=== PATIENT | male | born 1950 | race Caucasian/White ===

== ENCOUNTER → 2017-03-18 | Outpatient (CLI) | payer BC ==
[~2017-03-18] MED LIST: LEVO88TA3 PO; MULT-513 PO; PRLSR20 PO
--- NOTE | 2017-03-18 16:07 | DIAGNOSTIC IMAGING REPORT ---
MRI OF THE LEFT FOREFOOT WITHOUT IV CONTRAST CLINICAL HISTORY: Pain in the left second interspace. COMPARISON STUDY: MRI of the left foot dated 05/07/2016. TECHNIQUE: MRI of the left forefoot is performed utilizing various T1 and T2-weighted sequences in the axial, sagittal, and coronal planes. IV contrast was not administered for this examination. FINDINGS: There is an arthroplasty present at the first metatarsophalangeal joint. No marrow signal abnormality is identified in the left forefoot to indicate fracture or osteonecrosis. A cutaneous marker has been placed along the dorsal aspect of the second toe at the level of the metatarsal head. There is a lobulated T1 hypointense structure seen between the second and third metatarsophalangeal joints. This is best seen on axial image #17 and coronal T1 image #13 and measures approximately 15 x 3 x 10 mm. The appearance is concerning for a small neuroma. The neuroma previously questioned between the third and fourth metatarsophalangeal joints on 05/07/2016 is no longer identified and may have been removed. The regional musculature is normal as imaged. The partially visualized flexor and extensor tendons are grossly normal. IMPRESSION: 1. There is a lobulated T1 hypointense structure between the second and third metatarsophalangeal joints, concerning for a small neuroma as clinically suspected. This is deep to the indicated site of pain. 2. The neuroma previously suggested between the third and fourth metatarsophalangeal joints is no longer identified. 3. An arthroplasty is noted at the first metatarsophalangeal joint. Electronically signed by: Dat Mora M.D. 03/18/2017 4:06 PM Dictated Date/Time: 03/18/2017 3:57 PM
== END | disposition home or self-care (01) ==
LOC: C.MRIBC 15:00
PROVIDERS: ATTEND Podiatrist Foot & Ankle Surgery
DX: M24.875 Other specific joint derangements left foot, not elsewhere classified (principal); M77.8 Other enthesopathies, not elsewhere classified

== ENCOUNTER → 2017-06-12 | Day surgery (SDC) | payer BC ==
--- NOTE | 2017-06-10 19:09 | HISTORY & PHYSICAL EXAMINATION ---
DATE OF ADMISSION: 06/12/2017 HISTORY OF PRESENT ILLNESS: A 67-year-old male presents for initial preoperative evaluation. Pain is located in the left foot. Severity of condition is graded as 7 on a 10-point scale, gradually worsening over time. Pain is described as aching, sore and tender. Onset of the condition is unknown. The patient denies any recent numbness, precipitating event or other history. Associated signs and symptoms include numbness and tingling. The patient indicates injection has not improved the ____, nonsteroidals have not helped, orthotics have not helped, physical therapy has not helped. Rest has slightly improved his condition. He has also had surgery and MRI. Due to the nature and severity of the discomfort, he is requesting surgical intervention at this time. The patient previously underwent an implant replacement by Dr. Brasher. He subsequently had problems with his foot following the surgery. He was then found to have a neuroma over the 3rd interspace which he underwent surgery for and now is having symptoms in the 2nd interspace. MRI prior to the neuroma surgery showed a neuroma in the 3rd interspace; however, due to symptoms, this was explored and no neuroma was found. The new MRI showed a new neuroma over the left 2nd interspace. He has had extensive care, offloading and conservative treatment to avoid an additional surgery; however, due to the nature and severity of discomfort, the large size of the neuroma present over the 2nd interspace, the patient would like to proceed with surgical excision, similar to what he had performed before. He also notes pain on the 1st and would like this corrected at the same time. PAST SURGICAL HISTORY: Multiple foot surgeries in 2013 and 2016. PAST MEDICAL HISTORY: Vertigo, thyroid condition, hypercholesterolemia, heart valve problem, heart problems, back problems. MEDICATIONS: Omeprazole, levofloxacin. ALLERGIES: No known medical allergies. FAMILY HISTORY: Prostate cancer associated with father, heart problems. SOCIAL HISTORY: The patient admits to alcohol use, drinking described as mild. REVIEW OF SYSTEMS: Unremarkable except chief complaint. PHYSICAL EXAMINATION: VITAL SIGNS: 124/78, temperature is tympanic, temperature is 96.9. Height 6'1", weight 156, BMI 21. HEAD AND FACE: Head is normocephalic and atraumatic without any gross head, face, or neck masses. EYES: Conjunctival and pupillary reaction to light and accommodation are normal. EARS, NOSE, MOUTH, AND THROAT: Unremarkable. CARDIOVASCULAR: Normal S1, S2 without murmur, gallops, rubs, or clicks noted. Cardiovascular exam is normal. RESPIRATORY: Chest is symmetric. No scars are visible. No port or pacemaker. LUNGS: Clear to auscultation bilaterally and equal. GASTROINTESTINAL: Abdominal organs, bladder, and kidneys show no abnormalities, masses, tenderness, or rigidity. LYMPHATIC: No popliteal, inguinal, or supraclavicular lymphadenopathy noted. LOWER EXTREMITY VASCULAR: DP palpable. PT palpable. DERMATOLOGIC: No skin rash, subcutaneous nodules, lesions, or ulcers observed. NEUROLOGICAL: Touch, pin, vibratory pain, proprioception sensations are normal. Pain on palpation left 2nd interspace and left 3rd interspace. MUSCULOSKELETAL: Muscle tone is normal. Muscle strength is 5/5 all groups tested. 1st metatarsophalangeal joint shows evidence of an enlarged dorsomedial eminence bilaterally. Range of motion is limited and range of motion continues to be limited on the left. Right 2nd digit shows retrograde buckling across the metatarsophalangeal joint. Prominence of the plantar right 2nd MTPJ is noted. PIPJ contracture noted 2 through 5 bilaterally. DATA: MRI of the left foot on 05/07/2016 and then an MRI report for 03/18/2017, metallic artifact showing in this area. No definitive underlying abnormality; however, it is best seen on axial images 42 and 55. There is an oval shaped T2 hyperintense soft tissue abnormality between the heads of the 2nd and 3rd digits that was not present on the previous MRI report. IMPRESSION: Hammertoes 2 through 5 bilaterally, hallux limitus left greater than right, Tailor's bunion left, status post left 1st metatarsophalangeal joint surgery by Dr. 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 Brasher in 2011. PLAN: I discussed mechanical and congenital etiology of patient's deformity. Conservative treatment consisting of: 1. Extra depth shoes, accommodative padding, steroid injection, nonsteroidals, palliative debridement, splints and orthotics. Due to little relief with conservative treatment, the patient is requesting surgical intervention. Surgical ____ to be performed: 1. PIPJ arthroplasty with possible arthrodesis and MTPJ release, left 2nd digit. 2. Capsulotomy with relocation of left 2nd MTPJ. 3. Exploration of ____ left 2nd interspace with possible mass neuroma, excision plantar approach for modified Osei with possible fibular sesamoid excision, left. 4. Hardware excision left 1st metatarsophalangeal joint. 5. Cheilectomy, left 1st MTPJ with chante-implant, possible total joint and plasty. This will be performed under general anesthesia as an outpatient at the hospital. The procedure, risks and complications were fully reviewed with the patient. Consent form, foot diagram and illustration reviewed in all their entirety. All of the patient's questions were answered. Complications were discussed in detail with the patient including pain, infection, swelling that may or may not be excessive, pins and needles feeling, numbness, metatarsalgia, excessive bleeding, delay or nonhealing of bone, delay or nonhealing of skin, enlarged scar, failure of the procedure, reoccurrence or worsening of condition which may or may not require further surgery, adverse reaction to anesthesia, allergic reaction to suture or other implant material, loss of toe, foot, or leg, flail toe, stiff toe, short toe, elevated toe, transfer lesion or callus, peripheral neurovascular complications such as phlebitis, damage to nerves or vascular structures, severe or chronic arch pain, chronic nerve pain or damage, and general medical complications. The patient will be required to be in a surgery shoe for a minimum of 3-6 weeks and not return to dress shoes for 6-12 weeks depending on the postop edema. The patient is aware this is an elective type procedure and I recommend a second opinion. The patient stated they understood. Consent form was signed with a copy of the foot diagram issued to the patient. Verbal and written postop instructions were given. The patient will return to the office for postop check or sooner if medically necessary. Instructed to keep the dressing clean, dry, and intact until seen at the office. At time of the preoperative appointment, prescriptions for Keflex and Percocet were dispensed.
[~2017-06-12] VITALS: Ht 185.4 cm; Wt 70.9 kg
[2017-06-12] VITALS (9 sets, daily range): BP systolic 123–149; BP diastolic 63–88; PULSE 59–72; TEMP 36.5–36.7; O2SAT 95–99; Ht 185.4 cm; Wt 70.9 kg
[~2017-06-12] MED LIST changes: +ATROPINE SULFATE 0.1 MG/ML 5ML SYR IV PRN; +BUPIVACAINE 0.5 % 5 MG/1 ML MPF 30ML VIAL ONE; +BUPIVACAINE 0.5 % 5 MG/1 ML PF 10ML VIAL ONE; +CEFAZOLIN 1000MG/55 ML D5W IV SCH; +CLONIDINE HCL 100 MCG/ML SYRINGE ONE; +DEXAMETHASONE SOD INJ 4 MG/ML VIAL ONE; +EpHEDrine SULFATE 50MG/5ML SYR ONE; +EpHEDrine SULFATE INJ 50 MG/ML AMP IV PRN; +FENTANYL CITRATE INJ 50 MCG/1 ML 2 ML VIAL ONE; +FLUMAZENIL 0.1 MG/1 ML 10 ML VIAL IV PRN; +HYDROmorphone INJ 1 MG/ML SYR IV PRN; +HYDROmorphone INJ 1 MG/ML SYR ONE; +LABETALOL HCL IV 5 MG/ML 20ML IV PRN; +LACTATED RINGER'S 1000ML 1,000 ML IV SCH; +LIDOCAINE HCL 2% 2 ML VIAL (20MG/ML) ONE; +MEPIVACAINE HCL 1.5% 30 ML VIAL ONE; +MIDAZOLAM HCL 1 MG/ML 2ML VIAL ONE; +NALOXONE HCL 0.4 MG/1 ML VIAL/CARP IV PRN; +NURSING VERBAL MED ORDER ONE; +ONDANSETRON INJ 2 MG/ML 2 ML VIAL IV PRN; +ONDANSETRON INJ 2 MG/ML 2 ML VIAL ONE; +PROMETHAZINE HCL INJ 12.5 MG in SODIUM CHLORIDE 0.9% 50ML 50 ML IV ONE; +PROMETHAZINE HCL INJ 12.5 MG in SODIUM CHLORIDE 0.9% 50ML 50 ML IV PRN; +PROPOFOL IV EMULSION 10 MG/ML 20 ML VIAL IV ONE; +SODIUM CHLORIDE 0.9% 1000ML 1,000 ML IV SCH
[2017-06-12 06:10] LABS: HEMATOCRIT 42.1 % (42-52); MEAN CELL VOLUME 89.8 fL (80-100); MEAN CORPUSCULAR HEMOGLOBIN 29.2 pg (25-34); MEAN PLATELET VOLUME 8.7 fL (7.4-10.4); PLATELET COUNT 289 K/uL (130-400); RED BLOOD COUNT 4.69 M/uL (4.7-6.1); WHITE BLOOD COUNT 6.37 K/uL (4.8-10.8)
--- NOTE | 2017-06-12 06:16 | History & Physical Bridge Note ---
H&P Re-Evaluation Bridge Note: I have examined the patient, reviewed the History & Physical and in the interval since the performance of the History & Physical I have noted the following changes of clinical significance: No changes noted
--- NOTE | 2017-06-12 06:17 | Discharge Instructions ---
Discharge Instructions Date of Service Jun 12, 2017. Visit Reason for Visit: Stephanie Babcock, Neuroma Discharge Discharge Diagnosis / Problem: same as above Discharge Goals Goal(s): Decrease discomfort Activity Recommendations Activity Limitations: as noted below Medications: * Resume previous medications unless instructed by your surgeon. * Take your medications as prescribed. Call our office ([phone]) at any time, if you experience severe pain that does not subside shortly after taking your pain medication. Activity: * Do not put any standing weight on your operated foot/ankle. Use the crutches or walker as instructed. Special Care: * Keep your bandage clean and dry. Do not remove your bandage unless otherwise instructed. A small amount of blood may appear on the bandage over the surgical site. Call our office ([phone]) if you bandage becomes blood-soaked or wet. * Elevate your operated foot/ankle on pillows, above the level of your heart, as often as possible during the first 2-3 days following surgery. Keep your knee flexed slightly with a pillow under your knee when you elevate your foot/ankle. * Apply a ice bag to your foot/ankle over the operative site for 20-30 minutes out of each hour while you are awake. Do not allow the ice bag to directly contact bare skin. * Avoid bumping or handling any pins visible in your toes. If any pin feels or appears loose, call the office ([phone]). * Take your oral temperature in the morning and at bedtime. Call our office ([phone]) if your temperature rises above 101 degrees Fahrenheit. Call your surgeon's office at ([phone]) for any problems or concerns such as excessive bleeding and/or pain unrelieved by your prescribed pain medications. If you have any questions, please do not hesitate to ask them. Avoid all tobacco products. If you need help to stop smoking, call [place]'s FREE QUITLINE at . This is a free call. Follow-up: Follow-up with Dr. Pereira Anesthesia . Post Anesthesia Instructions: If you have had General Anesthesia or IV Sedation: * Do not drive today. * Resume driving when surgeon permits. * Do not make important decisions or sign legal documents today. * Call surgeon for: 1. Temperature elevations greater than 101 degrees F. 2. Uncontrollable pain. 3. Excessive bleeding. 4. Persistent nausea and vomiting. 5. Medication intolerance (nausea, vomiting or rash). * For nausea and vomiting use only clear liquids such as: tea, soda, bouillon until nausea subsides, then gradually increase diet as tolerated. * If you have any concerns or questions, call your surgeon's office. If physician is unavailable and it is an emergency, call 911 or go to the nearest emergency room. . Diet Recommendations Recommended Home Diet: resume previous diet Pending Studies Studies pending at discharge: no Medical Emergencies . Who to Call and When: Medical Emergencies: If at any time you feel your situation is an emergency, please call 911 immediately. . Non-Emergent Contact Non-Emergency issues call your: Primary Care Provider . . "Provider Documentation" section prepared by eMme Lopez. .
[2017-06-12 06:23] LABS: MEAN CORPUSCULAR HGB CONC 32.5 g/dl (32-36)
--- NOTE | 2017-06-12 12:25 | DIAGNOSTIC IMAGING REPORT ---
INTRAOPERATIVE LEFT FOOT 2 VIEWS CLINICAL HISTORY: LT FOOT RECONSTRUCTION COMPARISON STUDY: 04/16/2014 FINDINGS: 2 fluoroscopic spot images are provided for interpretation. 61 seconds of fluoroscopic time was utilized. The 2 screws within the proximal phalanx the great toe have been removed, and there is now evidence for a total first metatarsal phalangeal joint arthroplasty. There is evidence for an osteotomy and implant at the level of the proximal interphalangeal joint of the second toe. There is an orthopedic wire within the distal second metatarsal. It is not possible to determine from the provided projections whether the wire traverses the base of the proximal phalanx. IMPRESSION: Intraoperative radiographs as described above. Electronically signed by: Terry García M.D. 06/12/2017 12:24 PM Dictated Date/Time: 06/12/2017 12:21 PM
--- NOTE | 2017-06-12 12:35 | Anesthesiology Progress Note ---
Anesthesia Post Op Note Date & Time Jun 12, 2017 at 12:35 Vital Signs Pain Intensity: 5 Vital Signs Past 12 Hours Date Time Temp Pulse Resp B/P (MAP) Pulse Ox O2 Delivery O2 Flow Rate FiO2 06/12/17 12:25 36.3 70 16 125/69 95 Room Air 06/12/17 12:15 73 23 122/68 93 Room Air 06/12/17 12:05 77 15 131/73 94 Room Air 06/12/17 11:55 76 19 133/77 99 Oxymask 10 06/12/17 11:45 78 18 142/82 98 Oxymask 10 06/12/17 11:39 36.8 80 18 139/85 98 Oxymask 10 06/12/17 05:49 36.5 64 20 149/88 99 Room Air Notes Mental Status: alert / awake / arousable, participated in evaluation Pt Amnestic to Procedure: Yes Nausea / Vomiting: adequately controlled Pain: adequately controlled Airway Patency, RR, SpO2: stable & adequate BP & HR: stable & adequate Hydration State: stable & adequate Anesthetic Complications: no major complications apparent
--- NOTE | 2017-06-12 13:09 | DIAGNOSTIC IMAGING REPORT ---
L FOOT MIN 3 VIEWS ROUTINE CLINICAL HISTORY: 67 years-old Male presenting with postop. TECHNIQUE: Frontal, oblique, and lateral views of the left foot were obtained. COMPARISON: 06/12/2017 at 10:39 AM. FINDINGS: Postsurgical changes of arthroplasty at the first metatarsophalangeal joint. This appears to be laterally subluxed with greater valgus angulation of the proximal phalanx than expected. Intra-articular gas noted. Additional surgical hardware at the proximal interphalangeal joint of the second toe. Interval removal of the fixation pin across the second metatarsophalangeal joint. Osteopenia. No acute fracture. Ossific densities along the lateral aspect of the head of the first metatarsal likely post surgical. IMPRESSION: Arthroplasty of the first metatarsophalangeal joint with greater subluxation and angulation than may be expected in the postsurgical period. Correlate clinically. Electronically signed by: Lakhwinder Sadler M.D. 06/12/2017 1:07 PM Dictated Date/Time: 06/12/2017 1:04 PM
--- NOTE | 2017-06-12 14:08 | OPERATIVE REPORT ---
DATE OF OPERATION: 06/12/2017 SURGEON: Dr. Pereira. PREOPERATIVE DIAGNOSES: Neuroma, left 2nd interspace; hammertoe, left 2nd interspace; capsulitis left 2nd metatarsophalangeal joint, 1st metatarsophalangeal joint; degenerative joint disease left 1st metatarsophalangeal joint and left 2nd metatarsophalangeal joint; status post chante-implant arthroplasty by Dr. Brasher in 2013 with continued symptoms; hallux abductovalgus deformity. POSTOPERATIVE DIAGNOSES: Same. PROCEDURES: 1. Neuroplasty left 2nd interspace. 2. Excision of neuroma, left 2nd interspace plantar approach. 3. Excision of soft tissue mass. 4. PIPJ arthroplasty with arthrodesis, left 2nd and MTPJ release. 5. Capsulotomy with relocation of left 2nd metatarsophalangeal joint. 6. Modified Osei with fibular sesamoid excision and resection of the proximal phalanx base. 7. Excision of hardware, proximal phalanx, left 1st digit x2. 8. Cheilectomy, left 1st MTPJ with chante-implant arthroplasty. 9. Z-plasty lengthening, extensor tendon. 10. Repair of extensor tendon. ANESTHESIA: General with local field block 0.5% Marcaine plain, total of 30 mL. MATERIALS: Arthrosurface and phalangeal insert and a 1.5 mm offset poly 3.2 x 3.5. An extra implant, 2-0 Ethibond, 0.045 K-wire, 2-0 and 3-0 Vicryl, 4-0 nylon. FINDINGS: There is a large soft tissue fibrofatty mass surrounding the nerve over the left 2nd interspace. It should be noted that this nerve was slightly displaced more medially than directly underneath the interspace. There is a large amount of fibrofatty soft tissue mass in addition to the nerve. The phalangeal component of the metatarsal seemed to be solid. There was excessive bone formation. The fibular sesamoid was arthrofibrosed to the plantar aspect of the joint and tibial sesamoid onto this area. There was also arthrofibrosis with the joint, 1st metatarsophalangeal joint preventing all motion. The patient is a 67-year-old male well known to me. He came to my office following surgery from Dr. Brasher and with pain and forefoot pain. At that time he had symptoms over the 2nd interspace. This was most severe; however, he also had symptoms, MRI showed a neuroma over the 3rd interspace. At that time he underwent surgery in 2016 for neuroma excision left 3rd interspace and exploration of left 2nd interspace due to symptoms that were present; however, nothing was found at this time. It should also be noted that the MRI done had shown the mass in the 3rd interspace with no abnormality over the 2nd. The patient recovered well with symptoms improved; however, continued to have symptoms over the left 2nd MTPJ. Another MRI that was performed in 2017 showed lobulated hyperintense structure between the 2nd and 3rd metatarsophalangeal joints that was quite large and the neuroma over the 3rd and 4th interspaces was resolved and no longer identifiable. We discussed options due to the pain over the left 2nd interspace and left 2nd MTPJ joint. The patient also noted that he had continued pain over the left 1st. The patient was aware of the risk and alternatives and requested surgical intervention due to the nature and severity of the deformity. PROCEDURE IN DETAIL: The patient was brought to the OR and placed on the OR table in supine position. Upon completion of general anesthesia by the anesthesia department, local field block was performed with 30 mL 0.5% Marcaine plain. The foot was scrubbed, prepped and draped in the usual aseptic fashion. Attention was directed to the plantar aspect of the left foot where under loupe magnification, the 2nd interspace was incised. The digital nerves were identified and followed back more proximally. There was a large nerve mass surrounded by soft tissue fibrofatty mass. The nerve was more over the interspace; however, there was a larger fibrofatty soft tissue mass noted more medial than directly over the interspace. This was dissected free. The more proximal end of the nerve was also dissected, both the distal to digital components and the proximal were resected sharply and allowed to retract back with a sharp 15 blade. After careful dissection, care was taken to preserve all neurovascular structures. The wound was copiously lavaged with normal saline. Closure began in the deep structures using 3-0 Vicryl. Skin margins were closed using 2-0 nylon and 4-0 nylon. Attention was then directed to the dorsal aspect of the foot where a curvilinear incision was made over the left 2nd interspace, extending out onto the left 2nd digit. Left 2nd metatarsophalangeal joint was released over this area. The extensor tendon was transected at the proximal interphalangeal joint. Bone resection, the head of the proximal phalanx and base of the middle phalanx was removed. An extra implant was well seated in this area, 0.05 K-wire was placed and with the joint in plantar flexion. It should be noted that this K-wire was later removed due to release of the tourniquet. There was still pallor noted to the left 2nd digit upon release of the K-wire. There was improved cap refill noted to the left 2nd digit. Attention was directed to the 1st metatarsophalangeal joint with a linear incision just made to medial extensor hallucis longus. Dissection was carried down to the level of the extensor tendon. Attention was directed to the lateral aspect of the joint, over the fibular sesamoid. It should be noted that the fibular sesamoid was bound down to all cutaneous structures on the 1st met head, was quite difficult to remove. Extensive time, over an hour, was used in trying to resect the fibular sesamoid. It should be noted that we got to the fibular sesamoid out in total, however, it was attached to the tibial sesamoid and it was fibrosed to the plantar aspect of the 1st metatarsal head as well. The long extensor tendon was examined after its removal and found to be intact. The extensor tendon however was transected at the time of the procedure due to the difficulty in dissection, getting the fibular sesamoid removed. This was lengthened in Z-plasty fashion and repaired with Ethibond 2-0. Attention was then directed to the base of the proximal phalanx, where 2 previous screws were removed. C-arm was used to identify. These were both buried within the proximal phalanx. At this time, the guidewire was placed in the proximal phalanx and to put the joint in alignment dorsal, plantar and also from the lateral aspect. The area was drilled over the proximal phalanx and the reamer over the 1.5 guide pin was then used. The post was applied with the poly. There was found to be limited motion still. The post and trial implant was removed. It was redrilled deeper and tapped to get more motion across the metatarsophalangeal joint. 1.5 poly trial was found to be the best. The wound was copiously lavaged with normal sterile saline. Post was applied, 1.5 offset poly was applied. Wound was copiously lavaged with normal sterile saline. Closure began of the deep structures using 2-0 Vicryl. Superficial deep structures were closed using 3-0 Vicryl. Skin margins were closed using 4-0 interrupted and horizontal mattress with the exception of plantarly, where 2-0 and 4-0 were both used to close plantar incision. Pneumatic ankle tourniquet was released prior to closure. It should be noted due to decreased cap refill of left 2nd digit, the K-wire was removed with improved vascularization of left 2nd digit. Dry sterile compressive dressing consisting of Adaptic, 4 x 4's, Yen and an Donny was applied. The patient was transported to recovery room with vital signs stable and neurovascular status intact. I attest to the content of the Intraoperative Record and any orders documented therein. Any exception s are noted below.
== END | disposition home or self-care (01) ==
LOC: C.ACU 05:17
PROVIDERS: ATTEND Podiatrist Foot & Ankle Surgery
DX: M20.42 Other hammer toe(s) (acquired), left foot (principal); M20.12 Hallux valgus (acquired), left foot; M21.612 Bunion of left foot; M19.072 Primary osteoarthritis, left ankle and foot; G57.62 Lesion of plantar nerve, left lower limb; E78.00 Pure hypercholesterolemia, unspecified; Z80.42 Family history of malignant neoplasm of prostate; J43.9 Emphysema, unspecified; I34.1 Nonrheumatic mitral (valve) prolapse; K21.9 Gastro-esophageal reflux disease without esophagitis; E03.9 Hypothyroidism, unspecified; F41.9 Anxiety disorder, unspecified; F32.9 Major depressive disorder, single episode, unspecified; Z87.891 Personal history of nicotine dependence

== ENCOUNTER → 2017-08-21 | Outpatient (CLI) | payer BC ==
[~2017-08-21] MED LIST changes: -ATROPINE SULFATE 0.1 MG/ML 5ML SYR IV PRN; -BUPIVACAINE 0.5 % 5 MG/1 ML MPF 30ML VIAL ONE; -BUPIVACAINE 0.5 % 5 MG/1 ML PF 10ML VIAL ONE; -CEFAZOLIN 1000MG/55 ML D5W IV SCH; -CLONIDINE HCL 100 MCG/ML SYRINGE ONE; -DEXAMETHASONE SOD INJ 4 MG/ML VIAL ONE; -EpHEDrine SULFATE 50MG/5ML SYR ONE; -EpHEDrine SULFATE INJ 50 MG/ML AMP IV PRN; -FENTANYL CITRATE INJ 50 MCG/1 ML 2 ML VIAL ONE; -FLUMAZENIL 0.1 MG/1 ML 10 ML VIAL IV PRN; -HYDROmorphone INJ 1 MG/ML SYR IV PRN; -HYDROmorphone INJ 1 MG/ML SYR ONE; -LABETALOL HCL IV 5 MG/ML 20ML IV PRN; -LACTATED RINGER'S 1000ML 1,000 ML IV SCH; -LIDOCAINE HCL 2% 2 ML VIAL (20MG/ML) ONE; -MEPIVACAINE HCL 1.5% 30 ML VIAL ONE; -MIDAZOLAM HCL 1 MG/ML 2ML VIAL ONE; -NALOXONE HCL 0.4 MG/1 ML VIAL/CARP IV PRN; -NURSING VERBAL MED ORDER ONE; -ONDANSETRON INJ 2 MG/ML 2 ML VIAL IV PRN; -ONDANSETRON INJ 2 MG/ML 2 ML VIAL ONE; -PROMETHAZINE HCL INJ 12.5 MG in SODIUM CHLORIDE 0.9% 50ML 50 ML IV ONE; -PROMETHAZINE HCL INJ 12.5 MG in SODIUM CHLORIDE 0.9% 50ML 50 ML IV PRN; -PROPOFOL IV EMULSION 10 MG/ML 20 ML VIAL IV ONE; -SODIUM CHLORIDE 0.9% 1000ML 1,000 ML IV SCH
== END | disposition home or self-care (01) ==
LOC: C.LABSPEC 17:17
PROVIDERS: ATTEND Podiatrist Foot & Ankle Surgery
DX: L97.509 Non-pressure chronic ulcer of other part of unspecified foot with unspecified severity (principal)

== ENCOUNTER 2022-02-02 17:42 | Inpatient (IN) ==
[2022-02-02] MEDS ORDERED: SODIUM CHLORIDE 0.9% 1000ML 1,000 ML IV ONE (17:56)
--- NOTE | 2022-02-02 18:00 | Emergency Department Note ---
Impression & Plan Rhabdomyolysis, Elevated LFTs ED Provider Note Name: CLAUDIA ALAMO Age: 71 Sex: M Arrives Via: Walk-In Informant: Patient, ED Provider: Santana Oliver MD Chief Complaint: weakness Impression: As Per Impressions Above Medical Decision Making: Pleasant 71-year-old gentleman with a history of hypertension, dyslipidemia, BPH, prostate cancer, GERD arrives for evaluation of possible rhabdomyolysis. He has been dealing with 2 to 3 months of worsening weakness fatigue weight loss and generalized aches and pains. Extensive work-up as an outpatient without clear etiology until today when CK was 5000 in the outpatient setting. He is on a statin thus stopped and was sent to the ER for further evaluation. On arrival patient is tired, cachectic and dehydrated appearing. EKG is unremarkable. I did obtain a chest x-ray given the history of pneumonia which was treated about a month ago and todays xray is unremarkable. CK came back significantly elevated here. LFTs were mildly elevated as well. Otherwise labs are unremarkable. D-dimer is negative and thus I feel this is unlikely PE causing his exertional shortness of breath. His inflammatory markers are all normal/negative thus this is unlikely inflammatory/rheumatologic related. He has a soft, non-tender abdomen, and with normal wbc after 2-3 months of symptoms will hold off on imaging at this time, noting he had imaging by PCP along with colonoscopy, etc. Prior Medical Record and Triage/Nursing Notes reviewed by Me Additional history obtained from chart and Differentials:Infection, dehydration, metabolic abnormality, hypo/hyperglycemi a, electrolyte disturbance, anemia, hypoxia, cardiac sources, intracerebral event, toxicologic, neurologic, as well as other pathologies. Vital Signs: reviewed and remarkable for HTN Interventions: NSS bolus 1 L IV Labs:Reviewed and remarkable for elevated CK, elevated LFT Imaging:X ray results are stated below per my interpretation: Chest: 1 view: No infiltrate, no effusion, normal cardiac border. EKG:Per My Interpretation: Indication weakness: NSR 63 bpm, qtc 415. No Ectopy. No Ischemia. Compared to EKG 03/17/14, no significant changes. Consults:Dr Mari Early Hospitalist Plan: Disposition:Hospitalization. Condition: Good History of Present Illness: 71-year-old gentleman arrives for evaluation of weakness. Patient notes for the last 2 to 3 months he has been having gradually worsening weakness. This been associated with body aches, muscle pains, fatigue, severe shortness of breath with exertion, weight loss (10-15lbs), lack of appetite, chills amongst other symptoms. Patient notes any exertion makes him severely short of breath. Sitting down and resting makes him feel better. He says he has no energy and is not himself. He has been seen by his PCP multiple times of the last few months with multiple work-ups initially thought to be due to pneumonia treated with antibiotics. Continued worsening over the last month. Repeat labs done today revealed an elevated CK concern for rhabdo. There was concern it may be secondary to his statin use which she is not taking a statin today. Due to these findings as an outpatient he was sent to the ER for further evaluation. He took no medication prior to arrival. He has no history of liver issues. He denies any history of drinking. He is not a smoker. ROS: See above HPI for pertinent positives & negatives. A total of 10 systems reviewed and were otherwise negative. Past Medical History:Prostate cancer, hypertension, dyslipidemia, low sodium, hypothyroidism, GERD, BPH Past Surgical History:Prostate Family History:Mother of an ID Social History:Retired, lives with , non-smoker, no alcohol Home Medications:See Below Allergies:NDKA Vitals:Blood Pressure: 138/78, Pulse 78, RR 16, T 36.3C, O2 100% on RA Physical Exam: GENERAL: Patient is tired/cachectic appearing and in mild distress. EYES: No scleral icterus, unremarkable pupils. ENT: Mucous membranes dry, no nasal congestion. NECK: No masses appreciated, nomeningismus, trachea is midline. RESPIRATORY: No dyspnea. Clear to auscultation and equal bilaterally. No wheeze, no rhonchi. CARDIOVASCULAR: Regular rate and rhythm.No murmurs, rubs, gallops appreciated. GASTROINTESTINAL: Abdomen soft, non-tender, no peritonitis.Bowel sounds positive.No masses appreciated. BACK: No midline tenderness, no CVA tenderness EXTREMITIES: Normal motion all extremities, no cyanosis, no edema. NEUROLOGIC: Alert and oriented, no acute motor or sensory deficits, no focal weakness, cranial nerves grossly intact. SKIN: No rash, no jaundice, no diaphoresis. PSYCH: Appropriate GCS: 15 ED Course: Times/Reassessments: Looks comfortable in no distress agreeable to hospitalization. Santana Oliver MD Past Med/Surg History Medical History (Updated 02/02/22 @ 20:53 by Santana Oliver MD) Aortic regurgitation BPH with obstruction/lower urinary tract symptoms Dilated aortic root Gastroesophageal reflux Mitral valve regurgitation Surgical History (Updated 01/18/22 @ 09:20 by Lili Han RN) History of colonoscopy (07/24/06) History of colonoscopy (08/03/16) History of foot surgery (04/2014) History of foot surgery (06/27/16) History of foot surgery (06/12/17) History of prostate biopsy (12/18/21) History of vasectomy (1994) Family History (Updated 01/18/22 @ 09:24 by Lili Han RN) Father Prostate cancer Mother No problems noted. Brother Prostate cancer EBRT and Brachytherapy Son No problems noted. Son No problems noted. Brother No problems noted. Brother No problems noted. 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 How many Children do You have: 2 Feels Safe at Home: Yes caffeine: Yes (coffee) during the past year weight has: decreased > 10 lbs Dental Care, Regularly: Yes Assistive Devices: Glasses Allergies Allergies Allergy/AdvReac Type Severity Reaction Status Date / Time No Known Allergies Allergy Verified 02/02/22 20:15 Home Meds Home Medications Medication Instructions Recorded Confirmed aspirin 81 mg tablet,delayed 81 mg PO DAILY 01/18/22 02/02/22 release ferrous sulfate 325 mg (65 mg 325 mg PO BID 01/18/22 02/02/22 iron) tablet tamsulosin 0.4 mg capsule 0.4 mg PO DAILY 01/18/22 02/02/22 levothyroxine 88 mcg tablet 88 mcg PO DAILY 02/02/22 02/02/22 (Euthyrox) omeprazole 20 mg capsule,delayed 20 mg PO DAILY 02/02/22 02/02/22 release Results & Data (ED) Vital Signs Vital Signs - 24 hr 02/02/22 17:43 02/02/22 19:23 Temperature 36.3 C L Temperature Source Temporal Artery Scan Pulse Rate 78 Pulse Rate [Right Finger] 60 Pulse Rhythm Regular Pulse Strength Normal Respiratory Rate 16 18 Respiratory Effort / Characteristics Non-Labored Non-Labored Spontaneous Respiratory Depth Normal Normal Blood Pressure 138/78 Blood Pressure [Left Arm] 168/82 H Blood Pressure Mean 98 Blood Pressure Mean [Left Arm] 110 Blood Pressure Position [Left Arm] Sitting Pulse Oximetry 100 97 Oxygen Delivery Method Room Air Room Air Sepsis Recent Fever Within 48 Hours No Sepsis New/Unexplained Change in Mental Status N/A Sepsis Action Taken by Nursing No Action Required Laboratory Data Result diagrams: 02/02/22 18:15 02/02/22 18:15 Lab Results 02/02/22 02/02/22 02/02/22 Range/Units 18:15 18:15 18:15 WBC 7.56 (4.8-10.8) K/uL RBC 4.49 L (4.7-6.1) M/uL Hgb 13.6 L (14.0-18.0) g/dL Hct 40.6 L (42-52) % MCV 90.4 (80-100) fL MCH 30.3 (25-34) pg MCHC 33.5 (32-36) g/dL RDW Std Deviation 47.5 H (36.4-46.3) fL RDW Coeff of [place] 14.3 (11.5-14.5) % Plt Count 310 (130-400) K/uL MPV 9.1 (7.4-10.4) fL Immature Gran % (Auto) 0.1 % Neut % (Auto) 69.0 % Lymph % (Auto) 19.4 % [place] % (Auto) 8.1 % Eos % (Auto) 2.6 % Baso % (Auto) 0.8 % Neut # (Auto) 5.21 (1.4-6.5) K/uL Lymph # (Auto) 1.47 (1.2-3.4) K/uL [place] # (Auto) 0.61 H (0.11-0.59) K/uL Eos # (Auto) 0.20 (0-0.5) K/uL Baso # (Auto) 0.06 (0-0.2) K/uL Immature Gran # (Auto) 0.01 (0.00-0.02) K/uL ESR 14 (0-20) mm/hr D-Dimer 230 (0-500) ug/L FEU Sodium (136-145) mmol/L Potassium (3.5-5.1) mmol/L Chloride (98-107) mmol/L Carbon Dioxide (21-32) mmol/L Anion Gap (3-11) BUN (6-23) mg/dl Creatinine (0.6-1.4) mg/dl Est Cr Clr Drug Dosing ml/min Est GFR ( Amer) ml/min Est GFR (Non-Af Amer) ml/min BUN/Creatinine Ratio (10-20) Glucose (70-99(Fasting)) mg/dl Calcium (8.5-10.1) mg/dl Magnesium (1.7-2.4) mg/dl Total Bilirubin (0.2-1.0) mg/dl Direct Bilirubin (0-0.2) mg/dl AST (13-39) U/L ALT (7-52) U/L Alkaline Phosphatase (34-104) U/L Total Creatine Kinase (30-223) U/L Troponin I High Sens (0-20) pg/ml C-Reactive Protein (0-0.5) mg/dl Total Protein (6.0-8.3) gm/dl Albumin (3.4-5.0) gm/dl Lipase (11-82) U/L Urine Color Urine Appearance (Clear) Urine pH (4.5-7.5) Ur Specific [place] (1.000-1.030) Urine Protein (Negative) Urine Glucose (UA) (Negative) Urine Ketones (Negative) Urine Blood (Negative) Urine Nitrite (Negative) Urine Bilirubin (Negative) Urine Urobilinogen (Negative) Ur Leukocyte Esterase (Negative) Urine WBC (Auto) (0-5) /hpf Urine RBC (Auto) (0-4) /hpf U Hyaline Cast (Auto) (0-5) /lpf U Epithel Cells (Auto) (0-5) /lpf Urine Bacteria (Auto) (Negative) Lyme Disease IgG Ab (Negative) Lyme Disease IgM Ab (Negative) SARS-CoV-2, RNA, NAAT (NEGATIVE) 02/02/22 02/02/22 02/02/22 Range/Units 18:15 18:15 18:15 WBC (4.8-10.8) K/uL RBC (4.7-6.1) M/uL Hgb (14.0-18.0) g/dL Hct (42-52) % MCV (80-100) fL MCH (25-34) pg MCHC (32-36) g/dL RDW Std Deviation (36.4-46.3) fL RDW Coeff of [place] (11.5-14.5) % Plt Count (130-400) K/uL MPV (7.4-10.4) fL Immature Gran % (Auto) % Neut % (Auto) % Lymph % (Auto) % [place] % (Auto) % Eos % (Auto) % Baso % (Auto) % Neut # (Auto) (1.4-6.5) K/uL Lymph # (Auto) (1.2-3.4) K/uL [place] # (Auto) (0.11-0.59) K/uL Eos # (Auto) (0-0.5) K/uL Baso # (Auto) (0-0.2) K/uL Immature Gran # (Auto) (0.00-0.02) K/uL ESR (0-20) mm/hr D-Dimer (0-500) ug/L FEU Sodium 136 (136-145) mmol/L Potassium 3.7 (3.5-5.1) mmol/L Chloride 101 (98-107) mmol/L Carbon Dioxide 29 (21-32) mmol/L Anion Gap 6 (3-11) BUN 16 (6-23) mg/dl Creatinine 0.79 (0.6-1.4) mg/dl Est Cr Clr Drug Dosing 83.0 ml/min Est GFR ( Amer) 104.7 ml/min Est GFR (Non-Af Amer) 90.3 ml/min BUN/Creatinine Ratio 20.3 H (10-20) Glucose 127 H (70-99(Fasting)) mg/dl Calcium 9.3 (8.5-10.1) mg/dl Magnesium 2.1 (1.7-2.4) mg/dl Total Bilirubin 1.2 H (0.2-1.0) mg/dl Direct Bilirubin 0.1 (0-0.2) mg/dl AST 156 H (13-39) U/L ALT 288 H (7-52) U/L Alkaline Phosphatase 71 (34-104) U/L Total Creatine Kinase 6963 H (30-223) U/L Troponin I High Sens 8.0 (0-20) pg/ml C-Reactive Protein < 0.50 (0-0.5) mg/dl Total Protein 7.3 (6.0-8.3) gm/dl Albumin 4.2 (3.4-5.0) gm/dl Lipase 29 (11-82) U/L Urine Color Urine Appearance (Clear) Urine pH (4.5-7.5) Ur Specific [place] (1.000-1.030) Urine Protein (Negative) Urine Glucose (UA) (Negative) Urine Ketones (Negative) Urine Blood (Negative) Urine Nitrite (Negative) Urine Bilirubin (Negative) Urine Urobilinogen (Negative) Ur Leukocyte Esterase (Negative) Urine WBC (Auto) (0-5) /hpf Urine RBC (Auto) (0-4) /hpf U Hyaline Cast (Auto) (0-5) /lpf U Epithel Cells (Auto) (0-5) /lpf Urine Bacteria (Auto) (Negative) Lyme Disease IgG Ab Negative (Negative) Lyme Disease IgM Ab Negative (Negative) SARS-CoV-2, RNA, NAAT NEGATIVE (NEGATIVE) 02/02/22 Range/Units 19:20 WBC (4.8-10.8) K/uL RBC (4.7-6.1) M/uL Hgb (14.0-18.0) g/dL Hct (42-52) % MCV (80-100) fL MCH (25-34) pg MCHC (32-36) g/dL RDW Std Deviation (36.4-46.3) fL RDW Coeff of [place] (11.5-14.5) % Plt Count (130-400) K/uL MPV (7.4-10.4) fL Immature Gran % (Auto) % Neut % (Auto) % Lymph % (Auto) % [place] % (Auto) % Eos % (Auto) % Baso % (Auto) % Neut # (Auto) (1.4-6.5) K/uL Lymph # (Auto) (1.2-3.4) K/uL [place] # (Auto) (0.11-0.59) K/uL Eos # (Auto) (0-0.5) K/uL Baso # (Auto) (0-0.2) K/uL Immature Gran # (Auto) (0.00-0.02) K/uL ESR (0-20) mm/hr D-Dimer (0-500) ug/L FEU Sodium (136-145) mmol/L Potassium (3.5-5.1) mmol/L Chloride (98-107) mmol/L Carbon Dioxide (21-32) mmol/L Anion Gap (3-11) BUN (6-23) mg/dl Creatinine (0.6-1.4) mg/dl Est Cr Clr Drug Dosing ml/min Est GFR ( Amer) ml/min Est GFR (Non-Af Amer) ml/min BUN/Creatinine Ratio (10-20) Glucose (70-99(Fasting)) mg/dl Calcium (8.5-10.1) mg/dl Magnesium (1.7-2.4) mg/dl Total Bilirubin (0.2-1.0) mg/dl Direct Bilirubin (0-0.2) mg/dl AST (13-39) U/L ALT (7-52) U/L Alkaline Phosphatase (34-104) U/L Total Creatine Kinase (30-223) U/L Troponin I High Sens (0-20) pg/ml C-Reactive Protein (0-0.5) mg/dl Total Protein (6.0-8.3) gm/dl Albumin (3.4-5.0) gm/dl Lipase (11-82) U/L Urine Color Yellow Urine Appearance Clear (Clear) Urine pH 6.5 (4.5-7.5) Ur Specific [place] 1.007 (1.000-1.030) Urine Protein Negative (Negative) Urine Glucose (UA) Negative (Negative) Urine Ketones Negative (Negative) Urine Blood Trace H (Negative) Urine Nitrite Negative (Negative) Urine Bilirubin Negative (Negative) Urine Urobilinogen Negative (Negative) Ur Leukocyte Esterase Negative (Negative) Urine WBC (Auto) 0 (0-5) /hpf Urine RBC (Auto) 0-4 (0-4) /hpf U Hyaline Cast (Auto) 0 (0-5) /lpf U Epithel Cells (Auto) 0-5 (0-5) /lpf Urine Bacteria (Auto) Negative (Negative) Lyme Disease IgG Ab (Negative) Lyme Disease IgM Ab (Negative) SARS-CoV-2, RNA, NAAT (NEGATIVE) Administered Medications Discontinued Medications Sodium Chloride (Nss 1000ml) 1,000 mls @ 999 mls/hr IV .[id number] ONE Stop: 02/02/22 18:56 Last Infusion: 02/02/22 20:37 Dose: 0 mls/hr Documented by: [id number] Admin: 02/02/22 18:25 Dose: 999 mls/hr Documented by: [id number] Imaging Data Radiologist's Impression: Chest X-Ray 02/02/22 17:56 XR chest 1V portable CLINICAL HISTORY: shortness of breath, weakness. COMPARISON STUDY: No previous studies for comparison. TECHNIQUE: 1 view of the chest FINDINGS: Single frontal view of the chest demonstrates the cardiomediastinal silhouette to be within normal limits. The lungs are clear of alveolar opacities. There is no evidence for pleural effusion. There is no evidence for vascular congestion. There is no acute osseous pathology. IMPRESSION: 1. No acute cardiopulmonary disease. ACT 112: Negative or not required by law. Electronically signed by: Rosendo Hare M.D. 02/02/2022 7:18 PM Discharge Plan Visit Data Chief Complaint: Abnormal Labs/Diagnostic Testing Stated Complaint: REF BY , CK LEVELS ARE HIGH ED Provider: Santana Oliver Discharge Problem: Rhabdomyolysis, Elevated LFTs Patient Disposition: Admitted As Inpatient Discharge Instructions Interventions: ED Discharge Assessment Last Done: 02/02/22 20:12 Forms Stand Alone Forms: [facility] Prescriptions Prescriptions: No Action aspirin 81 mg tablet,delayed release (DR/EC) 81 mg PO DAILY RF: 0 tamsulosin 0.4 mg capsule 0.4 mg PO DAILY RF: 0 ferrous sulfate 325 mg (65 mg iron) tablet 325 mg PO BID RF: 0 levothyroxine [Euthyrox] 88 mcg tablet 88 mcg PO DAILY RF: 0 omeprazole 20 mg capsule,delayed release(DR/EC) 20 mg PO DAILY RF: 0 Referrals Referrals: Rodger Salamanca MD [Physician] - Discharge Problem: Rhabdomyolysis Qualifiers: Rhabdomyolysis type: non-traumatic Qualified Code(s): M62.82 - Rhabdomyolysis
[2022-02-02 19:01] LABS: Basophils # (auto) 0.06 K/uL (0-0.2); Basophils % (auto) 0.8 %; Eosinophils % (auto) 2.6 %; Hematocrit (blood only) 40.6 % (42-52); Hemoglobin 13.6 g/dL (14.0-18.0); Immature Granulocytes # (auto) 0.01 K/uL (0.00-0.02); Immature Granulocytes % (auto) 0.1 %; Lymphocytes # (auto) 1.47 K/uL (1.2-3.4); Lymphocytes % (auto) 19.4 %; Mean Corpuscular Hemoglobin 30.3 pg (25-34); Mean Corpuscular Hgb Conc 33.5 g/dL (32-36); Mean Corpuscular Volume 90.4 fL (80-100); Mean Platelet Volume 9.1 fL (7.4-10.4); Monocytes # (auto) 0.61 K/uL (0.11-0.59); Monocytes % (auto) 8.1 %; Neutrophils # (auto) 5.21 K/uL (1.4-6.5); Platelet Count 310 K/uL (130-400); RDW Coefficient of Variation 14.3 % (11.5-14.5); RDW Standard Deviation 47.5 fL (36.4-46.3); Red Blood Count 4.49 M/uL (4.7-6.1); White Blood Count 7.56 K/uL (4.8-10.8)
[2022-02-02 19:07] LABS: D Dimer 230 ug/L FEU (0-500)
[2022-02-02 19:15] LABS: Anion Gap 6 (3-11); BUN Creatinine Ratio 20.3 (10-20); Blood Urea Nitrogen 16 mg/dl (6-23); C Reactive Protein < 0.50 mg/dl (0-0.5); Calcium 9.3 mg/dl (8.5-10.1); Carbon Dioxide 29 mmol/L (21-32); Chloride 101 mmol/L (98-107); Est GFR (African American) 104.7 ml/min; Est GFR (Non-African American) 90.3 ml/min; Glucose 127 mg/dl (70-99(Fasting)); Potassium 3.7 mmol/L (3.5-5.1); Sodium 136 mmol/L (136-145)
--- NOTE | 2022-02-02 19:19 | XRay Report ---
XR chest 1V portable CLINICAL HISTORY: shortness of breath, weakness. COMPARISON STUDY: No previous studies for comparison. TECHNIQUE: 1 view of the chest FINDINGS: Single frontal view of the chest demonstrates the cardiomediastinal silhouette to be within normal li mits. The lungs are clear of alveolar opacities. There is no evidence for pleural effusion. There is no evidence for vascular congestion. There is no acute osseous pathology. IMPRESSION: 1. No acute cardiopulmonary disease. ACT 112: Negative or not required by law. Electronically signed by: Rosendo Hare M.D. 02/02/2022 7:18 PM
[2022-02-02 19:37] LABS: Alanine Aminotransferase 288 U/L (7-52); Albumin Level 4.2 gm/dl (3.4-5.0); Alkaline Phosphatase 71 U/L (34-104); Aspartate Aminotransferase 156 U/L (13-39); Bilirubin Direct 0.1 mg/dl (0-0.2); Bilirubin,Total 1.2 mg/dl (0.2-1.0); Creatine Kinase 6963 U/L (30-223); Lipase 29 U/L (11-82); Magnesium 2.1 mg/dl (1.7-2.4); Total Protein 7.3 gm/dl (6.0-8.3)
[2022-02-02 19:38] LABS: Appearance Urine Clear (Clear); Bacteria Urine Automated Negative (Negative); Bilirubin Urine Negative (Negative); Blood Urine Trace (Negative); Cast Urine Automated 0 /lpf (0-5); Color Urine Yellow; Epithelial Cell Urine Auto 0-5 /lpf (0-5); Glucose Urine UA Negative (Negative); Ketones Urine Negative (Negative); Leukocyte Esterase Urine Negative (Negative); Nitrite Urine Negative (Negative); Protein Urine Negative (Negative); RBC Urine Automated 0-4 /hpf (0-4); Specific Gravity Urine 1.007 (1.000-1.030); Urobilinogen Urine Negative (Negative); WBC Urine Automated 0 /hpf (0-5); pH Urine 6.5 (4.5-7.5)
[2022-02-02 19:39] LABS: Lyme Ab IgG w/WB Rflx Negative (Negative); Lyme Ab IgM w/WB Rflx Negative (Negative)
--- NOTE | 2022-02-02 21:04 | History & Physical Report ---
Date of Service February 02, 2022 Assessment & Plan (1) Rhabdomyolysis: Plan: Statin induced Possible explanation for patient's symptoms of 3 months duration. Situational hypertension aortic root dilatation/valvular heart disease (AR, MR) GERD, stable chronic anemia, hemoglobin at baseline prostate cancer, patient follows with [facility]. Prediabetes, hemoglobin A1c of 19 Jan 2022 GMF Stop statin, added to allergy/ADR list Follow CPK response to IVF DVT prophylaxis per Lovenox subcu Full code Patient requesting updates from providers. Ms. Stormy Gomez, contact #[phone]. Text document was generated using e[employer]ithila[employer] voice recognition software. It may contain grammatical or spelling errors. Kindly contact undersigned for clarification of any documentation item in question. History of Present Illness Chief Complaint: Abnormal blood work Primary Care Provider: Anastacio Del Angel MD History obtained from patient, family, and records. Medical history significant for aortic root dilatation, valvular heart disease (AR, MR), hyperlipidemia, GERD, chronic anemia (baseline hemoglobin of 13), prostate cancer, prediabetes, pancreatic divisum. 3 months history of generalized weakness, fatigue, body aches and involuntary 10 pound weight loss. No chest pain. Usual exertional shortness of breath. Achy lower abdominal pain complaints. Abnormal LFTs noted on outpatient blood work from 3 months ago. Lyme screen was negative Hepatitis work-up recommended by GI along with colonoscopy. Weakly positive ASMA on testing. MRI liver mild chronic appearing atrophy of the left hepatic lobe. No intrahepatic or extrahepatic biliary ductal dilatation or choledocholithiasis. Outpatient CT abdomen pelvis from 3 weeks ago showed abnormal prostate with no evidence of mets. Pancreas, liver and bile ducts were noted to be normal. [facility] follow-up 2 days ago. Patient complaining of dark stools with some worsening of abdominal discomfort. Outpatient endoscopy scheduled for March or April. Follow-up LFTs drawn outpatient showed progression. CK was noted to be greater than 5000. Patient advised by GI provider to stop statin and to go to the ER for further evaluation. 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 Allergies Allergy/AdvReac Type Severity Reaction Status Date / Time [id number] Reductase AdvReac Intermediate rhabdomyloy Verified 02/03/22 00:10 Inhibitor sis Home Medications Medication Instructions Recorded Confirmed Type aspirin 81 mg tablet,delayed 81 mg PO DAILY 01/18/22 02/02/22 History release ferrous sulfate 325 mg (65 mg 325 mg PO BID 01/18/22 02/02/22 History iron) tablet tamsulosin 0.4 mg capsule 0.4 mg PO DAILY 01/18/22 02/02/22 History levothyroxine 88 mcg tablet 88 mcg PO DAILY 02/02/22 02/02/22 History (Euthyrox) omeprazole 20 mg capsule,delayed 20 mg PO DAILY 02/02/22 02/02/22 History release Past Med/Surg History Medical History (Updated 02/02/22 @ 20:53 by Santana Oliver MD) Aortic regurgitation BPH with obstruction/lower urinary tract symptoms Dilated aortic root Gastroesophageal reflux Mitral valve regurgitation Surgical History (Updated 01/18/22 @ 09:20 by Lili Han RN) History of colonoscopy (07/24/06) History of colonoscopy (08/03/16) History of foot surgery (04/2014) History of foot surgery (06/27/16) History of foot surgery (06/12/17) History of prostate biopsy (12/18/21) History of vasectomy (1994) Family History (Updated 01/18/22 @ 09:24 by Lili Han RN) Father Prostate cancer Mother No problems noted. Brother Prostate cancer EBRT and Brachytherapy Son No problems noted. Son No problems noted. Brother No problems noted. Brother No problems noted. 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 How many Children do You have: 2 Feels Safe at Home: Yes Safety Concerns: Feels Safe At This Time caffeine: Yes (coffee) during the past year weight has: decreased > 10 lbs Dental Care, Regularly: Yes Assistive Devices: None Review of Systems Review of Systems: As per HPI, all other systems reviewed and negative Physical Exam Physical Exam: GENERAL: Comfortable, pleasant,, no respiratory distress SKIN: Pallor, warm HEENT: Pale palpebral conjunctivae, no ptosis, dry buccal mucosa NECK : Supple, no tenderness CHEST : CTA, no tenderness HEART : RRR, no obvious murmurs ABDOMEN: No distention, nontender RECTAL : Intact sphincter, dark stool (FOBT negative) EXTREMITIES : No LE swelling/tenderness, no other conspicuous deformities noted NEUROLOGIC : Coherent, no facial asymmetry, no other gross focality Results & Data Results & Data ([facility]) Vital Signs (Past 12 Hours) Vital Signs Temp Pulse Pulse Resp BP BP Pulse Ox 02/02/22 19:23 60 18 168/82 H 97 02/02/22 17:43 36.3 C L 78 16 138/78 100 Laboratory Results Laboratory Results WBC 7.56 K/uL (4.8-10.8) 02/02/22 18:15 RBC 4.49 M/uL (4.7-6.1) L 02/02/22 18:15 Hgb 13.6 g/dL (14.0-18.0) L 02/02/22 18:15 Hct 40.6 % (42-52) L 02/02/22 18:15 MCV 90.4 fL (80-100) 02/02/22 18:15 MCH 30.3 pg (25-34) 02/02/22 18:15 MCHC 33.5 g/dL (32-36) 02/02/22 18:15 RDW Std Deviation 47.5 fL (36.4-46.3) H 02/02/22 18:15 RDW Coeff of [place] 14.3 % (11.5-14.5) 02/02/22 18:15 Plt Count 310 K/uL (130-400) 02/02/22 18:15 MPV 9.1 fL (7.4-10.4) 02/02/22 18:15 Immature Gran % (Auto) 0.1 % 02/02/22 18:15 Neut % (Auto) 69.0 % 02/02/22 18:15 Lymph % (Auto) 19.4 % 02/02/22 18:15 Jennings % (Auto) 8.1 % 02/02/22 18:15 Eos % (Auto) 2.6 % 02/02/22 18:15 Baso % (Auto) 0.8 % 02/02/22 18:15 Neut # (Auto) 5.21 K/uL (1.4-6.5) 02/02/22 18:15 Lymph # (Auto) 1.47 K/uL (1.2-3.4) 02/02/22 18:15 Jennings # (Auto) 0.61 K/uL (0.11-0.59) H 02/02/22 18:15 Eos # (Auto) 0.20 K/uL (0-0.5) 02/02/22 18:15 Baso # (Auto) 0.06 K/uL (0-0.2) 02/02/22 18:15 Immature Gran # (Auto) 0.01 K/uL (0.00-0.02) 02/02/22 18:15 ESR 14 mm/hr (0-20) 02/02/22 18:15 D-Dimer 230 ug/L FEU (0-500) 02/02/22 18:15 Sodium 136 mmol/L (136-145) 02/02/22 18:15 Potassium 3.7 mmol/L (3.5-5.1) 02/02/22 18:15 Chloride 101 mmol/L (98-107) 02/02/22 18:15 Carbon Dioxide 29 mmol/L (21-32) 02/02/22 18:15 Anion Gap 6 (3-11) 02/02/22 18:15 BUN 16 mg/dl (6-23) 02/02/22 18:15 Creatinine 0.79 mg/dl (0.6-1.4) 02/02/22 18:15 Est Cr Clr Drug Dosing 83.0 ml/min 02/02/22 18:15 Est GFR ( Amer) 104.7 ml/min 02/02/22 18:15 Est GFR (Non-Af Amer) 90.3 ml/min 02/02/22 18:15 BUN/Creatinine Ratio 20.3 (10-20) H 02/02/22 18:15 Glucose 127 mg/dl (70-99(Fasting)) H 02/02/22 18:15 Calcium 9.3 mg/dl (8.5-10.1) 02/02/22 18:15 Magnesium 2.1 mg/dl (1.7-2.4) 02/02/22 18:15 Total Bilirubin 1.2 mg/dl (0.2-1.0) H 02/02/22 18:15 Direct Bilirubin 0.1 mg/dl (0-0.2) 02/02/22 18:15 AST 156 U/L (13-39) H 02/02/22 18:15 ALT 288 U/L (7-52) H 02/02/22 18:15 Alkaline Phosphatase 71 U/L (34-104) 02/02/22 18:15 Total Creatine Kinase 6963 U/L (30-223) H 02/02/22 18:15 Troponin I High Sens 8.0 pg/ml (0-20) 02/02/22 18:15 C-Reactive Protein < 0.50 mg/dl (0-0.5) 02/02/22 18:15 Total Protein 7.3 gm/dl (6.0-8.3) 02/02/22 18:15 Albumin 4.2 gm/dl (3.4-5.0) 02/02/22 18:15 Lipase 29 U/L (11-82) 02/02/22 18:15 Urine Color Yellow 02/02/22 19:20 Urine Appearance Clear (Clear) 02/02/22 19:20 Urine pH 6.5 (4.5-7.5) 02/02/22 19:20 Ur Specific [place] 1.007 (1.000-1.030) 02/02/22 19:20 Urine Protein Negative (Negative) 02/02/22 19:20 Urine Glucose (UA) Negative (Negative) 02/02/22 19:20 Urine Ketones Negative (Negative) 02/02/22 19:20 Urine Blood Trace (Negative) H 02/02/22 19:20 Urine Nitrite Negative (Negative) 02/02/22 19:20 Urine Bilirubin Negative (Negative) 02/02/22 19:20 Urine Urobilinogen Negative (Negative) 02/02/22 19:20 Ur Leukocyte Esterase Negative (Negative) 02/02/22 19:20 Urine WBC (Auto) 0 /hpf (0-5) 02/02/22 19:20 Urine RBC (Auto) 0-4 /hpf (0-4) 02/02/22 19:20 U Hyaline Cast (Auto) 0 /lpf (0-5) 02/02/22 19:20 U Epithel Cells (Auto) 0-5 /lpf (0-5) 02/02/22 19:20 Urine Bacteria (Auto) Negative (Negative) 02/02/22 19:20 Lyme Disease IgG Ab Negative (Negative) 02/02/22 18:15 Lyme Disease IgM Ab Negative (Negative) 02/02/22 18:15 SARS-CoV-2, RNA, NAAT NEGATIVE (NEGATIVE) 02/02/22 18:15 Impressions Chest X-Ray 02/02/22 17:56 XR chest 1V portable CLINICAL HISTORY: shortness of breath, weakness. COMPARISON STUDY: No previous studies for comparison. TECHNIQUE: 1 view of the chest FINDINGS: Single frontal view of the chest demonstrates the cardiomediastinal silhouette to be within normal limits. The lungs are clear of alveolar opacities. There is no evidence for pleural effusion. There is no evidence for vascular congestion. There is no acute osseous pathology. IMPRESSION: 1. No acute cardiopulmonary disease. ACT 112: Negative or not required by law. Electronically signed by: Rosendo Hare M.D. 02/02/2022 7:[address] abdomen pelvis initial read: No evidence of bowel obstruction or perforation. Colonic diverticulosiswithout evidence of acute diverticulitis. No hydronephrosis or nephrolithiasis. Normal visualized gallbladder. Normal visualized liver, spleen, pancreas, adrenal glands. No abdominal aortic aneurysmor dissection. Scattered atherosclerotic vascular calcifications. No acute osseous findings. EKG as per my interpretation: Rate 65, NSR, normal axis, T wave abnormalities lateral leads (1) Rhabdomyolysis Rhabdomyolysis type: non-traumatic Qualified Code(s): M62.82 - Rhabdomyolysis
[2022-02-02] MEDS ORDERED: LACTATED RINGER'S 1,000 ML IV ONE (21:15)
[2022-02-02] MEDS ORDERED: OPTIRAY 320 100ml IV ONE (21:23)
[2022-02-02] MEDS ORDERED: PROMETHAZINE HCL 6.25 MG in SODIUM CHLORIDE 0.9% 50 ML IV PRN (22:26)
[2022-02-02] MEDS ORDERED: traMADol HCL 50 MG TABLET PO PRN (22:26)
[2022-02-03 06:11] LABS: Basophils # (auto) 0.07 K/uL (0-0.2); Eosinophils # (auto) 0.19 K/uL (0-0.5); Eosinophils % (auto) 2.8 %; Hematocrit (blood only) 37.7 % (42-52); Hemoglobin 12.5 g/dL (14.0-18.0); Immature Granulocytes # (auto) 0.01 K/uL (0.00-0.02); Immature Granulocytes % (auto) 0.1 %; Lymphocytes # (auto) 0.92 K/uL (1.2-3.4); Lymphocytes % (auto) 13.7 %; Mean Corpuscular Hemoglobin 29.6 pg (25-34); Mean Corpuscular Hgb Conc 33.2 g/dL (32-36); Mean Corpuscular Volume 89.1 fL (80-100); Mean Platelet Volume 8.9 fL (7.4-10.4); Monocytes # (auto) 0.78 K/uL (0.11-0.59); Monocytes % (auto) 11.6 %; Neutrophils # (auto) 4.75 K/uL (1.4-6.5); Neutrophils % (auto) 70.8 %; Platelet Count 277 K/uL (130-400); RDW Coefficient of Variation 14.4 % (11.5-14.5); RDW Standard Deviation 46.9 fL (36.4-46.3); Red Blood Count 4.23 M/uL (4.7-6.1); White Blood Count 6.72 K/uL (4.8-10.8)
[2022-02-03] MEDS: LEVOTHYROXINE SODIUM 88 MCG TABLET PO SCH (06:16)
[2022-02-03 06:32] LABS: BUN Creatinine Ratio 18.8 (10-20); Calcium 8.6 mg/dl (8.5-10.1); Creatinine Clr Calc Pharmacy 101.2 ml/min; Est GFR (African American) 114.2 ml/min; Est GFR (Non-African American) 98.5 ml/min; Potassium 3.6 mmol/L (3.5-5.1)
--- NOTE | 2022-02-03 06:52 | CT Scan Report ---
CT abd pelvis IV con only CLINICAL HISTORY: worsening abd pain COMPARISON STUDY: No previous studies for comparison. CT DOSE: 274.67 mGy.cm TECHNIQUE: Standard CT of the Abdomen and Pelvis was performed with IV contrast. A dose lowering yuliet hnique was utilized adhering to the principles of ALARA. Contrast Volume: Optiray 320, 90 ml. The patient did not receive oral contrast. FINDINGS: Lung base: The lung bases are clear. Abdominal cavity: There is no evidence for abdominal mass, adenopathy or ascites. Liver: There is homogeneous attenuation of the liver parenchyma. There is no evidence for enhancing m ass lesion. There is mild hepatomegaly. Spleen: There is homogeneous attenuation of the splenic parenchyma. There is no enhancing mass lesion . Pancreas: There is homogeneous attenuation of the pancreatic parenchyma. There is no evidence for mas s lesion or peripancreatic fluid collection. Gall Bladder: The gallbladder is well distended with no evidence for intraluminal calculi, wall thick ening or pericholecystic edema. Adrenal glands: The adrenal glands are normal in size and attenuation. There is no evidence for enhan cing mass lesion. Kidneys: There is homogeneous attenuation of the renal parenchyma bilaterally. There is no evidence f or renal calculus or hydronephrosis. There is no evidence for enhancing mass. Subcentimeter simple re nal cysts are present on the left. Bowel: The bowel loops are normally placed within the abdomen and pelvis without evidence for dilatat ion or obstruction. There is mild to moderate fecal stasis without evidence for impaction or obstruct ion. There are no inflammatory changes present. There is no evidence for free air. The appendix is no t visualized. Bladder: The bladder is within normal limits with no evidence for focal mass, calculus or diverticulu m. There is diffuse thickening of the bladder wall characteristic of chronic bladder outlet obstructi on. : There is no evidence for pelvic mass or adenopathy. There is no evidence for pelvic ascites. Ther e is moderate prostate enlargement and enlargement of the seminal vesicles bilaterally. Vasculature: There is no evidence for aneurysmal dilatation of the abdominal aorta. Mild atherosclero tic calcification is present. Osseous structures: There is no acute osseous pathology. Degenerative changes are seen within the spi ne. IMPRESSION: 1. No acute intra-abdominal or pelvic abnormality. 2. Mild to moderate fecal stasis without evidence for impaction or obstruction. 3. Additional nonacute findings are delineated above. ACT 112: Negative or not required by law. Electronically signed by: Rosendo Hare M.D. 02/03/2022 6:51 AM
[2022-02-03 07:00] LABS: Albumin Globulin Ratio 1.2 (0.9-2); Albumin Level 3.3 gm/dl (3.4-5.0); Bilirubin,Total 1.4 mg/dl (0.2-1.0); Globulin 2.7 gm/dl (2.5-4.0)
[2022-02-03] MEDS: LACTATED RINGER'S 1,000 ML IV SCH ×2 (08:03→17:49)
[2022-02-03] MEDS: ASPIRIN 81 MG ECTAB PO SCH (09:56)
[2022-02-03] MEDS: ENOXAPARIN INJ 30 MG/0.3 ML SYR SQ SCH (09:57)
[2022-02-03] MEDS: TAMSULOSIN HCL 0.4 MG CAP PO SCH (09:57)
[2022-02-03] MEDS: FERROUS SULFATE 325 MG TAB PO SCH ×2 (09:57→21:51)
[2022-02-03] MEDS: PANTOprazole 40 MG TAB PO SCH (09:57)
[2022-02-03] MEDS ORDERED: POLYETHYLENE (MIRALAX) 17 GM PACK PO PRN (10:16)
[2022-02-03] MEDS: DOCUSATE SODIUM 100 MG CAP PO SCH ×2 (10:35→21:51)
--- NOTE | 2022-02-03 13:11 | Electrocardiogram Report ---
Test Reason : Blood Pressure : / mmHG Vent. Rate : 063 BPM Atrial Rate : 063 BPM P-R Int : 150 ms QRS Dur : 076 ms QT Int : 406 ms P-R-T Axes : 087 035 081 degrees QTc Int : 415 ms Normal sinus rhythm Normal ECG When compared with ECG of 17-MAR-2014 14:27, No significant change was found Confirmed by Burton Fuller ([id number]) on 02/03/2022 1:11:28 PM Referred By: Bowen Bro Confirmed By:Burton Fuller
--- NOTE | 2022-02-03 16:07 | Hospitalist Progress Note ---
Date of Service February 03, 2022 Assessment & Plan (1) Rhabdomyolysis: Plan: Rhabdomyolysis Statin induced CK:[id number] Statin held Continue IV fluids Monitor CK, renal function Transaminitis Likely secondary to above Follows with [facility] as outpatient Avoid hepatotoxic agents Monitor LFTs Will need further work up as outpatient Chronic Abdominal Pain Fecal Stasis ? Lactose Intolerance based on history CT ABD:No acute intra-abdominal or pelvic abnormality. Mild to moderate fecal stasis without evidence for impaction or obstruction. Started on bowel regimen Situational hypertension Aortic root dilatation/valvular heart disease (AR, MR) BP stable Monitor GERD Continue PPI Chronic anemia Likely anemia of chronic disease No obvious bleeding issues FOBT Negative in ED Monitor CBC Prostate cancer Follows with [facility]. Prediabetes HbA1C: 19 Jan 2022 Severe Protein calorie malnutrition BMI 19 Dietitian consulted DVT Px: Lovenox SQ Code Status Full code Admission and Anticipated Discharge Date Admission Date: February 02, 2022 Subjective Patient is seen and examined at bedside Reports generalized weakness States having intermittent abdominal pain for about 1 year Denies any chest pain, shortness of breath, dizziness, nausea, diarrhea Offers no other complaints Review of Systems Review of Systems: All systems reviewed & are unremarkable except as noted in Subjective Physical Exam Physical Exam: Physical Exam: Vitals signs as noted above General Appearance:Thin, Frail, no apparent distress Head: normocephalic, Atraumatic Eyes: normal inspection, EOMI Neck: supple, Trachea midline Respiratory/Chest: Normal breath sounds, CTA, No accessory muscle use Cardiovascular: S1, S2, No murmur Abdomen/GI:Soft, Non tender, Bowel sounds present Extremities/Musculoskeletal:normal inspection, no edema Neurologic/Psych:AAOX3, grossly no focal neurological deficits Skin: normal color, warm Results & Data Results & Data ([facility]) Vital Signs (Past 12 Hours) Vital Signs Temp Pulse Resp BP Pulse Ox 02/03/22 15:33 36.8 C 62 14 148/75 H 99 02/03/22 07:19 36.7 C 58 L 16 150/71 H 95 Laboratory Results Short CBC 02/02/22 02/03/22 Range/Units 18:15 05:36 WBC 7.56 6.72 (4.8-10.8) K/uL Hgb 13.6 L 12.5 L (14.0-18.0) g/dL Hct 40.6 L 37.7 L (42-52) % Plt Count 310 277 (130-400) K/uL BMP 02/02/22 02/03/22 18:15 05:36 Sodium 136 139 Potassium 3.7 3.6 Chloride 101 107 Carbon Dioxide 29 27 BUN 16 12 Creatinine 0.79 0.64 Glucose 127 H 101 H Calcium 9.3 8.6 Cardiac Enzymes 02/02/22 02/03/22 Range/Units 18:15 05:36 Total Creatine Kinase 6963 H 4696 H (30-223) U/L Liver Function 02/02/22 02/03/22 Range/Units 18:15 05:36 Total Bilirubin 1.2 H 1.4 H (0.2-1.0) mg/dl Direct Bilirubin 0.1 (0-0.2) mg/dl AST 156 H 114 H (13-39) U/L ALT 288 H 224 H (7-52) U/L Alkaline Phosphatase 71 55 (34-104) U/L Albumin 4.2 3.3 L (3.4-5.0) gm/dl Urine 02/02/22 Range/Units 19:20 Urine Color Yellow Urine Appearance Clear (Clear) Urine pH 6.5 (4.5-7.5) Ur Specific [place] 1.007 (1.000-1.030) Urine Protein Negative (Negative) Urine Glucose (UA) Negative (Negative) (1) Rhabdomyolysis Rhabdomyolysis type: non-traumatic Qualified Code(s): M62.82 - Rhabdomyolysis
[2022-02-03] MEDS: ACETAMINOPHEN 325 MG TAB PO PRN (23:18)
[2022-02-04] MEDS: LACTATED RINGER'S 1,000 ML IV SCH ×2 (03:21→13:08)
[2022-02-04] MEDS: LEVOTHYROXINE SODIUM 88 MCG TABLET PO SCH (05:40)
[2022-02-04] MEDS: PANTOprazole 40 MG TAB PO SCH (08:15)
[2022-02-04] MEDS: ASPIRIN 81 MG ECTAB PO SCH (08:15)
[2022-02-04] MEDS: ENOXAPARIN INJ 30 MG/0.3 ML SYR SQ SCH (08:15)
[2022-02-04] MEDS: TAMSULOSIN HCL 0.4 MG CAP PO SCH (08:15)
[2022-02-04] MEDS: DOCUSATE SODIUM 100 MG CAP PO SCH ×2 (08:15→20:22)
[2022-02-04] MEDS: FERROUS SULFATE 325 MG TAB PO SCH ×2 (08:15→20:22)
[2022-02-04] MEDS: ACETAMINOPHEN 325 MG TAB PO PRN ×2 (08:15→20:24)
[2022-02-04 10:10] LABS: Calcium 9.1 mg/dl (8.5-10.1); Est GFR (African American) 117.2 ml/min; Est GFR (Non-African American) 101.2 ml/min; Potassium 3.6 mmol/L (3.5-5.1)
[2022-02-04 10:22] LABS: Albumin Globulin Ratio 1.4 (0.9-2); Albumin Level 3.8 gm/dl (3.4-5.0); Bilirubin,Total 1.8 mg/dl (0.2-1.0); Globulin 2.7 gm/dl (2.5-4.0); Total Protein 6.5 gm/dl (6.0-8.3)
--- NOTE | 2022-02-04 14:39 | Hospitalist Progress Note ---
Date of Service February 04, 2022 Assessment & Plan (1) Rhabdomyolysis: Plan: Rhabdomyolysis Statin induced CK:[id number] Statin held Continue IV fluids Monitor CK, renal function Transaminitis Likely secondary to above Follows with [facility] as outpatient Avoid hepatotoxic agents Monitor LFTs Advised to follow up with GI as outpatient Check Gall bladder USD Chronic Abdominal Pain Fecal Stasis ? Lactose Intolerance based on history CT ABD:No acute intra-abdominal or pelvic abnormality. Mild to moderate fecal stasis without evidence for impaction or obstruction. Continue bowel regimen Situational hypertension Aortic root dilatation/valvular heart disease (AR, MR) BP stable Monitor GERD Continue PPI Chronic anemia Likely anemia of chronic disease No obvious bleeding issues FOBT Negative in ED Monitor CBC Prostate cancer Follows with [facility]. Prediabetes HbA1C: 19 Jan 2022 Severe Protein calorie malnutrition BMI 19 Dietitian consulted DVT Px: Lovenox SQ Code Status Full code Admission and Anticipated Discharge Date Admission Date: February 02, 2022 Subjective Patient is seen and examined at bedside States feeling better today Subjectively feels weakness has improved Denies any abd pain today States having intermittent abdominal pain for about 1 year Denies any chest pain, shortness of breath, dizziness, nausea, diarrhea Review of Systems Review of Systems: All systems reviewed & are unremarkable except as noted in Subjective Physical Exam Physical Exam: Physical Exam: Vitals signs as noted above General Appearance:Thin, Frail, no apparent distress Head: normocephalic, Atraumatic Eyes: normal inspection, EOMI Neck: supple, Trachea midline Respiratory/Chest: Normal breath sounds, CTA, No accessory muscle use Cardiovascular: S1, S2, No murmur Abdomen/GI:Soft, Non tender, Bowel sounds present Extremities/Musculoskeletal:normal inspection, no edema Neurologic/Psych:AAOX3, grossly no focal neurological deficits Skin: normal color, warm Results & Data Results & Data ([facility]) Vital Signs (Past 12 Hours) Vital Signs Temp Pulse Resp BP Pulse Ox 02/04/22 08:12 36.6 C 63 14 152/79 H 96 Laboratory Results [facility] 02/04/22 09:09 Sodium 137 Potassium 3.6 Chloride 104 Carbon Dioxide 28 BUN 12 Creatinine 0.60 Glucose 141 H Calcium 9.1 Cardiac Enzymes 02/04/22 Range/Units 09:09 Total Creatine Kinase 4212 H (30-223) U/L Liver Function 02/04/22 Range/Units 09:09 Total Bilirubin 1.8 H (0.2-1.0) mg/dl AST 105 H (13-39) U/L ALT 215 H (7-52) U/L Alkaline Phosphatase 62 (34-104) U/L Albumin 3.8 (3.4-5.0) gm/dl (1) Rhabdomyolysis Rhabdomyolysis type: non-traumatic Qualified Code(s): M62.82 - Rhabdomyolysis
--- NOTE | 2022-02-04 20:22 | Ultrasound Report ---
US gallbladder LIMITED ABDOMEN CLINICAL HISTORY: abd pain. COMPARISON: None. TECHNIQUE: Multiple grayscale and color images of the right upper quadrant of the abdomen. FINDINGS: Pancreas: The pancreas is within normal limits with no focal mass or peripancreatic fluid collection identified. Liver: The liver is homogeneous in echogenicity There is no evidence for a focal mass. There is no in trahepatic biliary duct dilatation. Gallbladder: The gallbladder is well distended with no evidence of cholelithiasis, wall thickening or pericholecystic edema. There is a negative reported sonographic Frazier sign. Common Bile Duct: (CBD): It is normal in size measuring 2 mm. Inferior Vena Cava (IVC): The imaged IVC is patent. Right kidney: There is no evidence for hydronephrosis, calculus or gross renal mass. The kidney is no rmal in size. IMPRESSION: 1. Negative limited right upper quadrant abdominal ultrasound. ACT 112: Negative or not required by law. Electronically signed by: Rosendo Hare M.D. 02/04/2022 8:20 PM
[2022-02-05] MEDS: LACTATED RINGER'S 1,000 ML IV SCH (00:53)
[2022-02-05] MEDS: LEVOTHYROXINE SODIUM 88 MCG TABLET PO SCH (05:53)
[2022-02-05 07:57] LABS: BUN Creatinine Ratio 16.4 (10-20); Calcium 9.1 mg/dl (8.5-10.1); Creatinine Clr Calc Pharmacy 106.2 ml/min; Est GFR (African American) 116.5 ml/min; Est GFR (Non-African American) 100.5 ml/min; Potassium 3.7 mmol/L (3.5-5.1)
[2022-02-05 07:59] LABS: Albumin Globulin Ratio 1.3 (0.9-2); Albumin Level 3.5 gm/dl (3.4-5.0); Bilirubin,Total 1.4 mg/dl (0.2-1.0); Globulin 2.6 gm/dl (2.5-4.0); Total Protein 6.1 gm/dl (6.0-8.3)
[2022-02-05] MEDS: FERROUS SULFATE 325 MG TAB PO SCH (08:36)
[2022-02-05] MEDS: TAMSULOSIN HCL 0.4 MG CAP PO SCH (08:36)
[2022-02-05] MEDS: PANTOprazole 40 MG TAB PO SCH (08:36)
[2022-02-05] MEDS: DOCUSATE SODIUM 100 MG CAP PO SCH (08:36)
[2022-02-05] MEDS: ASPIRIN 81 MG ECTAB PO SCH (08:37)
[2022-02-05] MEDS: ENOXAPARIN INJ 30 MG/0.3 ML SYR SQ SCH (08:37)
--- NOTE | 2022-02-05 10:06 | Hospitalist Progress Note ---
Date of Service February 05, 2022 Assessment & Plan (1) Rhabdomyolysis: Plan: Rhabdomyolysis Statin induced CK:6963>[id number]>3811 Statin held Discontinue IV fluids Monitor CK, renal function Transaminitis Likely secondary to above Follows with [facility] as outpatient Avoid hepatotoxic agents Monitor LFTs Advised to follow up with GI as outpatient Gall bladder USD:Negative limited right upper quadrant abdominal ultrasound. LFTs trending down Chronic Abdominal Pain Fecal Stasis ? Lactose Intolerance based on history CT ABD:No acute intra-abdominal or pelvic abnormality. Mild to moderate fecal stasis without evidence for impaction or obstruction. Continue bowel regimen Situational hypertension Aortic root dilatation/valvular heart disease (AR, MR) BP elevated Asymptomatic IV fluids likely contributing Monitor GERD Continue PPI Chronic anemia Likely anemia of chronic disease No obvious bleeding issues FOBT Negative in ED Monitor CBC Prostate cancer Follows with [facility]. Prediabetes HbA1C: 19 Jan 2022 Severe Protein calorie malnutrition BMI 19 Dietitian consulted DVT Px: Lovenox SQ Code Status Full code Admission and Anticipated Discharge Date Admission Date: February 02, 2022 Subjective Patient is seen and examined at bedside No new complaints Doing well LFTs, CK levels better Denies any chest pain, shortness of breath, dizziness, nausea, diarrhea, abd pain Plan to discharge home today Review of Systems Review of Systems: All systems reviewed & are unremarkable except as noted in Subjective Physical Exam Physical Exam: Physical Exam: Vitals signs as noted above General Appearance:Thin, Frail, no apparent distress Head: normocephalic, Atraumatic Eyes: normal inspection, EOMI Neck: supple, Trachea midline Respiratory/Chest: Normal breath sounds, CTA, No accessory muscle use Cardiovascular: S1, S2, No murmur Abdomen/GI:Soft, Non tender, Bowel sounds present Extremities/Musculoskeletal:normal inspection, no edema Neurologic/Psych:AAOX3, grossly no focal neurological deficits Skin: normal color, warm Results & Data Results & Data ([facility]) Vital Signs (Past 12 Hours) Vital Signs Temp Pulse Resp BP Pulse Ox 02/05/22 07:55 36.3 C L 56 L 20 158/76 H 98 Laboratory Results BMP 02/04/22 02/05/22 09:09 07:13 Sodium 137 139 Potassium 3.6 3.7 Chloride 104 105 Carbon Dioxide 28 29 BUN 12 10 Creatinine 0.60 0.61 Glucose 141 H 98 Calcium 9.1 9.1 Cardiac Enzymes 02/04/22 02/05/22 Range/Units 09:09 07:13 Total Creatine Kinase 4212 H 3811 H (30-223) U/L Liver Function 02/04/22 02/05/22 Range/Units 09:09 07:13 Total Bilirubin 1.8 H 1.4 H (0.2-1.0) mg/dl AST 105 H 96 H (13-39) U/L ALT 215 H 196 H (7-52) U/L Alkaline Phosphatase 62 60 (34-104) U/L Albumin 3.8 3.5 (3.4-5.0) gm/dl (1) Rhabdomyolysis Rhabdomyolysis type: non-traumatic Qualified Code(s): M62.82 - Rhabdomyolysis
--- NOTE | 2022-02-05 10:26 | Discharge Summary ---
Date of Service February 05, 2022 Admission HPI Per Admitting Provider History obtained from patient, family, and records. Medical history significant for aortic root dilatation, valvular heart disease (AR, MR), hyperlipidemia, GERD, chronic anemia (baseline hemoglobin of 13), prostate cancer, prediabetes, pancreatic divisum. 3 months history of generalized weakness, fatigue, body aches and involuntary 10 pound weight loss. No chest pain. Usual exertional shortness of breath. Achy lower abdominal pain complaints. Abnormal LFTs noted on outpatient blood work from 3 months ago. Lyme screen was negative Hepatitis work-up recommended by GI along with colonoscopy. Weakly positive ASMA on testing. MRI liver mild chronic appearing atrophy of the left hepatic lobe. No intrahepatic or extrahepatic biliary ductal dilatation or choledocholithiasis. Outpatient CT abdomen pelvis from 3 weeks ago showed abnormal prostate with no evidence of mets. Pancreas, liver and bile ducts were noted to be normal. [facility] follow-up 2 days ago. Patient complaining of dark stools with some worsening of abdominal discomfort. Outpatient endoscopy scheduled for March or April. Follow-up LFTs drawn outpatient showed progression. CK was noted to be greater than 5000. Patient advised by GI provider to stop statin and to go to the ER for further evaluation. 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 Admission Exam Per Admitting Provider Physical Exam Physical Exam: GENERAL: Comfortable, pleasant,, no respiratory distress SKIN: Pallor, warm HEENT: Pale palpebral conjunctivae, no ptosis, dry buccal mucosa NECK : Supple, no tenderness CHEST : CTA, no tenderness HEART : RRR, no obvious murmurs ABDOMEN: No distention, nontender RECTAL : Intact sphincter, dark stool (FOBT negative) EXTREMITIES : No LE swelling/tenderness, no other conspicuous deformities noted NEUROLOGIC : Coherent, no facial asymmetry, no other gross focality Principal Diagnosis Rhabdomyolysis Transaminitis Elevated Blood Pressure Discharge Data Allergies Allergy/AdvReac Type Severity Reaction Status Date / Time [id number] Reductase AdvReac Intermediate rhabdomyloy Verified 02/03/22 00:10 Inhibitor sis Consultations 02/02/22 19:45 ED Decision to Admit Stat Ordered Studies 02/02/22 21:00 CT abd pelvis IV con only Urgent 02/04/22 12:22 gallbladder Urgent Hospital Course (1) Rhabdomyolysis: Rhabdomyolysis Statin induced CK:[id number] Statin held Discontinue IV fluids Monitor CK, renal function Transaminitis Likely secondary to above Follows with [facility] as outpatient Avoid hepatotoxic agents Monitor LFTs Advised to follow up with GI as outpatient Gall bladder USD:Negative limited right upper quadrant abdominal ultrasound. LFTs trending down Chronic Abdominal Pain Fecal Stasis ? Lactose Intolerance based on history CT ABD:No acute intra-abdominal or pelvic abnormality. Mild to moderate fecal stasis without evidence for impaction or obstruction. Continue bowel regimen Situational hypertension Aortic root dilatation/valvular heart disease (AR, MR) BP elevated Asymptomatic IV fluids likely contributing Monitor GERD Continue PPI Chronic anemia Likely anemia of chronic disease No obvious bleeding issues FOBT Negative in ED Monitor CBC Prostate cancer Follows with [facility]. Prediabetes HbA1C: 19 Jan 2022 Severe Protein calorie malnutrition BMI 19 Dietitian consulted DVT Px: Lovenox SQ Code Status Full code Total Time Total Time Spent Total Time Spent (In Minutes): 40 minutes Discharge Plan Discharge Items Patient Disposition: Home - Self-Care Reason For Visit: RHABDOMYOLYSIS Discharge Diagnosis: Rhabdomyolysis Transaminitis Elevated Blood Pressure Activity: Per Instructions section Exercise/Sports: Gradually increase as tolerated Non-emergency contact: Primary Care Provider and Manager Family Call non-emergency contact if: you have any medication questions, your symptoms worsen, your pain is concerning for you and you have a fever Follow-up/Referrals: Bowen Bro CRNP [Nurse Practitioner] - (Date & Time 03/16/2022 4:00 PM Provider RAVEN Palomino Department Gastroenterology, [facility] ) Anastacio Del Angel MD [Primary Care Provider] - (Date & Time 02/08/2022 12:00 PM Provider Americo Barcenas DO Department Family Practice [facility] ) Diet: Heart Healthy Addtl Attending Provider Instructions: Follow-up with your primary care physician on 02/08/2022 12:00 PM 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 Please call if you have any questions or problems. You can reach a [facility] hospitalist on duty at [facility] 24 hours a day by calling [phone] Pending Studies at Discharge: No Stand-Alone Forms: My [facility], Smoking Cessation Medications and DC Order Prescriptions: New docusate sodium 100 mg Capsule 100 mg PO BID PRN (Reason: Constipation) Qty: 30 RF: 0 Continued aspirin 81 mg tablet,delayed release (DR/EC) 81 mg PO DAILY RF: 0 tamsulosin 0.4 mg capsule 0.4 mg PO DAILY RF: 0 ferrous sulfate 325 mg (65 mg iron) tablet 325 mg PO BID RF: 0 levothyroxine [Euthyrox] 88 mcg tablet 88 mcg PO DAILY RF: 0 omeprazole 20 mg capsule,delayed release(DR/EC) 20 mg PO DAILY RF: 0 Discharge Orders: Discharge Order (Routine); Ordered 02/05/22 Ordered By: Winston Woodward Admission Data Admit Date/Time: 02/02/22 21:15 Attending Provider: Winston Woodward Admit Provider: Irineo Guerra Primary Care Provider: Anastacio Del Angel Other Providers: Irineo Guerra
== END 2022-02-05 11:25 | disposition home or self-care (01) | DRG 557 ==
LOC: ED 17:42 → 3W 20:12
DX: I08.0 Rheumatic disorders of both mitral and aortic valves; K21.9 Gastro-esophageal reflux disease without esophagitis; M62.82 Rhabdomyolysis; E43 Unspecified severe protein-calorie malnutrition; I15.9 Secondary hypertension, unspecified; Z82.49 Family history of ischemic heart disease and other diseases of the circulatory system; Z87.891 Personal history of nicotine dependence; Z80.0 Family history of malignant neoplasm of digestive organs; T46.6X5A Adverse effect of antihyperlipidemic and antiarteriosclerotic drugs, initial encounter; Z79.82 Long term (current) use of aspirin; E73.9 Lactose intolerance, unspecified; Z80.42 Family history of malignant neoplasm of prostate; E03.9 Hypothyroidism, unspecified; Z68.1 Body mass index [BMI] 19.9 or less, adult; D63.8 Anemia in other chronic diseases classified elsewhere; C61 Malignant neoplasm of prostate; R19.5 Other fecal abnormalities; G89.29 Other chronic pain; Z79.890 Hormone replacement therapy; R73.03 Prediabetes; Z87.01 Personal history of pneumonia (recurrent); R10.9 Unspecified abdominal pain; Z79.899 Other long term (current) drug therapy; Z88.8 Allergy status to other drugs, medicaments and biological substances